=== PATIENT | female | born 1970 | race Caucasian/White ===

== ENCOUNTER 2025-07-27 09:28 | Emergency (ER) | payer OTHER | END 2025-07-27 10:53 | disposition home or self-care (01) | LOC: VM.ED 09:28 | DX: S93.401A Sprain of unspecified ligament of right ankle, initial encounter (principal); F17.200 Nicotine dependence, unspecified, uncomplicated; Z88.0 Allergy status to penicillin; Z88.5 Allergy status to narcotic agent; X50.1XXA Overexertion from prolonged static or awkward postures, initial encounter | CPT/HCPCS: 73610-RT; 99283 ==